=== PATIENT | female | born 1985 | race Caucasian/White ===

== ENCOUNTER → 2017-03-02 | Day surgery (SDC) | payer OTHER ==
--- NOTE | 2017-03-01 12:55 | GHP ---
[f rep st] HISTORY AND PHYSICAL HISTORY OF PRESENT ILLNESS: The patient is a 32-year-old, 4, para 3, who came in for a new OB on 02/08/2017 with an ultrasound that had 1 fetus positive cardiac activity, size less than dates by 9 days, that returned after an episode of bleeding on 02/21/2017, and had no heart rate. The patient has decided to proceed with a D and C. The patient was given information on the risks, the benefits, and the alternatives. Was given Cytotec 2 doses with minimal results. Returns for an ultrasound on 03/01/2017 that still shows products of conception that remain in the uterus. ALLERGIES: States allergy to penicillin. MEDICATIONS: Just taking vitamins and probiotics. 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 The patient has had a previous LEEP first in 1999 and 2002. Date of last Pap was 2013. Other gynecological history: Patient started her menarche at 9 years old, 30 day interval, 7 days of cycle. Last menstrual period was 12/14/2016. Positive test was 01/08/2017. SURGICAL HISTORY: Denies any surgeries to her uterus, fractured elbow in 2012, had surgery, breast augmentation at 18 years old. FAMILY HISTORY: Noncontributory. Mother has lupus. Father of alcoholism. PREVIOUS HISTORY: In 07/2006, 8 pounds 6 ounces, 40 weeks, 8 hours of labor vaginal with an epidural, male, at [facility]. In 09/2008, 6 pounds 14 ounces at 40 weeks, 8 hours vaginal, epidural,a girl, manual extraction of the placenta. In 03/2012, 9 pounds, 40 and 5/7 weeks, 2 hours, vaginal delivery epidural, a girl, rapid labor. SOCIAL HISTORY: Patient is to her . Denies tobacco use. Denies drug use. REVIEW OF SYSTEMS: Noncontributory x9. PHYSICAL ASSESSMENT: GENERAL APPEARANCE: Patient is awake, alert, oriented x3. LUNGS: Clear bilaterally. ABDOMEN: Bowel sounds are positive in all 4 quadrants. EXTREMITIES: DTRs were 1+ bilaterally with negative Homans sign. PLAN: So the patient was given instructions to be n.p.o. after midnight as of tonight at midnight. The patient verbalized understanding of need for IV. Discussed the risks of bleeding, infection, and the possibility of damage that we did not intend as risks of the procedure. The patient was a little bit nervous about the procedure and will mention this to provider that is to do her D and C. The patient has never had to receive RhoGAM so believes that she is positive blood type. /[id number]/MODL MTDD
[~2017-03-02] MED LIST: DEXAMETHASONE 4 MG/ML VIAL ONE; DOXYCYCLINE HYCLATE 100 MG CAP/TAB PO ONE; DOXYCYCLINE INJ 100 MG in NS 250 ML IV SCH; HYDROCODONE/APAP 5/325 TAB PO PRN; KETOROLAC 30 MG/1 ML SDV ONE; LIDOCAINE 2% 5 ML SDV ONE; LR 500 ML IV PRN; METHYLERGONOVINE MAL 0.2 MG TAB PO SCH; MIDAZOLAM 2 MG/2 ML VIAL ONE; NALOXONE HCL 0.4 MG/ML INJ IVP PRN; ONDANSETRON 4 MG/2 ML VIAL ONE; OXYTOCIN 100 UNITS/10 ML VIAL ONE; OXYTOCIN 20 UNIT in LR 1,000 ML IV SCH; PROPOFOL/EMULSION 500 MG/50 ML BOTTLE IV ONE; SCOPOLAMINE HYDROBROMIDE 1 MG/3 DAYS PATCH TD ONE; ceFAZolin 1 GM VIAL ONE; ceFAZolin 2 GM/DEXTROSE 100 ML IV ONE; ceFAZolin 2 GM/SWFI 2 GM/20 ML SYR IVP ONE; fentaNYL 100 MCG/2 ML INJ IVP PRN; fentaNYL 100 MCG/2 ML INJ ONE
--- NOTE | 2017-03-02 08:03 | PDANEPAE ---
ANE History of Present Illness Incomplete Ab. ANE Past Medical History - Cardiovascular History Hx Hypertension: No Hx Arrhythmias: No Hx Chest Pain: No Hx Coronary Artery / Peripheral Vascular Disease: No Hx CHF / Valvular Disease: No Hx Palpitations: No - Pulmonary History Hx COPD: No Hx Asthma/Reactive Airway Disease: No Hx Recent Upper Respiratory Infection: No Hx Oxygen in Use at Home: No Hx Sleep Apnea: No - Endocrine History Hx Diabetes: No Hypothyroid: No Hyperthyroid: No Obesity: no - Surgical History Prior Surgeries: Prior elbow and breast surgery under general anesthesia. Prior labor epidurals. ANE Review of Systems Review of systems is: negative Review of Systems: - Exercise capacity Exercise capacity: >=4 METS ANE Patient History - Allergies Allergies/Adverse Reactions: Penicillins Allergy (Verified 03/02/17 06:35) Rash - Anes Hx Anes Hx: post operative nausea - Smoking Hx Smoking Status: Never smoked Marijuana use: No - Alcohol Use Alcohol Use: Rarely - Family Anes Hx Family Anes Hx: neg - N/A ANE Labs/Vital Signs - Vital Signs Height: 165.1 cm Weight: 78.925 kg ANE Physical Exam - Airway Neck exam: FROM Mallampati Score: Class 1 Mouth exam: normal dental/mouth exam - Pulmonary Pulmonary: no respiratory distress - Cardiovascular Cardiovascular: regular rate and rhythym - ASA Status ASA Status: I ANE Anesthesia Plan Anesthesia Plan: GA with mask
[2017-03-02 08:04] LABS: % IMMATURE GRANULYOCYTES 0.3 % (0.0-1.1); ABSOLUTE IMMATURE GRANULOCYTES 0.02 10^3/uL (0.00-0.10); ADD DIFF? NO; ADD MORPH? NO; ADD SCAN? NO; ATYPICAL LYMPHOCYTE FLAG 0 (0-99); FRAGMENT RBC FLAG 0 (0-99); HEMATOCRIT 41.1 % (38.0-47.0); HEMOGLOBIN 13.9 g/dL (12.6-16.3); LEFT SHIFT FLG 0 (0-99); LIPEMIA HEMOLYSIS FLAG 90 (0-99); MEAN CELL HEMOGLOBIN 28.3 pg (27.9-34.1); MEAN CELL HEMOGLOBIN CONCENTR. 33.8 g/dL (32.4-36.7); MEAN CELL VOLUME 83.5 fL (81.5-99.8); MEAN PLATELET VOLUME 9.9 fL (8.7-11.7); PLATELET CLUMPS FLAG 0 (0-99); PLATELET COUNT 180 10^3/uL (150-400); RED BLOOD CELL COUNT 4.92 10^6/uL (4.18-5.33); RED CELL DISTRIBUTION WIDTH 13.1 % (11.5-15.2)
--- NOTE | 2017-03-02 09:38 | POSTOPPROG ---
Post Op Note Date of Operation: 03/02/17 Surgeon: Juliocesar Billingsley Chief Mechanical Engineer: OR Staff Anesthesiologist: Onel Gipson MD Anesthesia: GET(General Endotracheal) Pre-op Diagnosis: Incomplete spontaneous Post-op Diagnosis: Same Indication: 32 yo with IAB Procedure: Suction D&C Findings: Retained products of conception Inf/Abcess present in the surg proc area at time of surgery?: No Depth: Organ Space EBL: 50-100 Total fluids administered: 1000 mL LR Complications: None
--- NOTE | 2017-03-02 09:43 | POSTANESTH ---
Post Anesthetic Evaluation Cardiovascular Status: Normal, Stable, Similar to Pre-Op Cond Respiratory Status: Normal, Stable, Similar to Pre-op Cond. Level of Consciousness/Mental Status: Can Participate in Eval, Alert and Oriented Pain Control: Adequate, Prn Tx Ordered Nausea/Vomiting Control: Adequate, Prn Tx Ordered Complications Possibly Related to Anesthesia: None Noted
--- NOTE | 2017-03-02 10:19 | SUROPNOTE ---
[facility] Operative Report - Surgery OPERATIVE REPORT DATE OF OPERATION: 03/02/2017 SURGEON: Jorge Alberto Billingsley MD GLOBAL ANALYTICS HEAD: OR Staff ANESTHESIA: General Endotracheal ANESTHESIOLOGIST: Onel Gipson MD PREOPERATIVE DIAGNOSES: 1. 32 yo WF A1 with IAB confirmed on serial US (no cardiac activity, measuring 9 days behind gestational age by CRL). POSTOPERATIVE DIAGNOSIS: Same as above PROCEDURE PERFORMED: Suction dilation and curettage FINDINGS: 1. Anteverted 10-week sized uterus. 2. Moderate amounts of products of conception. SPECIMENS: Products of conception. EBL: 100 mL INDICATIONS: 32 yo @ 11 weeks by LMP with missed (measured 8 weeks) diagnosed on February 21, 2017, and status post failed Cytotec treatment x 2 doses. After counseling regarding management options, Michelle decided to proceed with suction dilation and curettage. DESCRIPTION OF PROCEDURE: The patient was taken to the operating room after she was given 100 mg of PO doxycycline. A time-out was performed. General endotracheal anesthesia was induced and found to be adequate. Patient was placed in dorsal lithotomy position with Cesar stirrups. A bimanual exam under anesthesia revealed 10-week sized anteverted uterus. Vagina and perineum were prepped and patient was draped in normal sterile fashion. Red rubber catheter was used to empty 25 mL of clear urine from bladder. A sterile weighted speculum was placed in patient' s vagina and the cervix was noted to be slightly dilated with no blood or products of conception present at the os. A single tooth tenaculum was applied to the anterior lip of the cervix and used for uterine traction. The uterus was gently sounded (with dilator) to 9 cm. Dilators were used in increasing size to dilate cervix. An 11 Martiniquais suction curette was advance gently to the uterine fundus. The suction device was then activated to clear the uterus of the retained products of conception. A sharp curettage was then performed until a gritty texture was noted (circumferentially around endometrial cavity). The suction curette was reintroduced to clear the uterus of all remaining products of conception. A realtime bedside transabdominal sonogram was performed by myself and confirmed no obvious retained products of conception or blood clots. There was minimal bleeding noted and the tenaculum was removed with good hemostasis at tenaculum teeth sites. The patient tolerated the procedure well. The patient was taken to PACU in stable condition. Sponge, lap, and instrument counts were correct x 2.
== END | disposition home or self-care (01) ==
LOC: FOBOP 05:44
PROVIDERS: ATTEND Obstetrics & Gynecology Gynecology
PROC: 10D17ZZ Extraction of Products of Conception, Retained, Via Natural or Artificial Opening (ICD-10-PCS; principal; 2017-03-02)
DX: O02.1 Missed abortion (principal)
CPT/HCPCS: J0690; J1100; J1885; J2250; J2405; J2590; J2704; J3010